=== PATIENT | male | born 1965 | race Caucasian/White ===

== ENCOUNTER 2017-04-24 11:42 | Inpatient (IN) | payer OTHER ==
[~2017-04-24] VITALS: Ht 180.3 cm; Wt 121.1 kg
[2017-04-24] MEDS ORDERED: SODIUM CHLORIDE FLUSH 10ML SYR IVF ONE (12:30)
[2017-04-24] MEDS ORDERED: ONDANSETRON 2MG/ML, 2ML IVPush ONE (12:30)
[2017-04-24] MEDS ORDERED: ONDANSETRON 2MG/ML, 2ML ONE (12:34)
[2017-04-24] MEDS ORDERED: HYDROmorphone 1 MG/ML, 1ML ONE ×5 (12:34→17:42)
[2017-04-24] MEDS: HYDROmorphone 1 MG/ML, 1ML IVPush PRN ×2 (12:38→13:20)
[2017-04-24 12:55] LABS: HEMATOCRIT 45.8 % (39.2-51.8); HEMOGLOBIN 15.5 g/dL (13.7-18.0); WHITE BLOOD COUNT 11.8 x10^3/uL (3.4-10)
[2017-04-24 13:11] LABS: BLOOD UREA NITROGEN 17 mg/dL (7-18)
[2017-04-24] MEDS ORDERED: HYDROmorphone 1 MG/ML, 1ML IV ONE (14:30)
[2017-04-24] MEDS ORDERED: D5%-0.45NACL+KCL 20MEQ 1,000 ML IV ONE (15:16)
[2017-04-24] MEDS ORDERED: HYDROmorphone 1 MG/ML, 1ML IVPush PRN (15:30)
[2017-04-24] MEDS ORDERED: ONDANSETRON 2MG/ML, 2ML IVPush PRN (15:30)
[2017-04-24] MEDS: HYDROmorphone 2 MG/ML, 1ML IVPush PRN (17:46)
[2017-04-24 19:45] VITALS: BP 147/95
[2017-04-24] MEDS: OXYcodone/APAP 10/325MG TABLET PO PRN (20:19)
[2017-04-25] MEDS: OXYcodone/APAP 10/325MG TABLET PO PRN ×7 (00:25→22:28)
[2017-04-25] MEDS: HYDROmorphone 2 MG/ML, 1ML IVPush PRN ×6 (01:01→19:26)
[2017-04-25 04:41] VITALS: BP 112/69
[2017-04-25] MEDS: ENOXAPARIN 40 MG/0.4 ML SQ SCH (07:49)
[2017-04-25 08:35] VITALS: BP 128/68
[2017-04-25] MEDS ORDERED: DIPHENHYDRAMINE 25 MG CAPSULE PO PRN (13:00)
[2017-04-25] MEDS ORDERED: DIPHENHYDRAMINE 50 MG CAPSULE PO PRN (13:00)
[2017-04-25 13:46] VITALS: BP 124/68
[2017-04-25 19:37] VITALS: BP 124/75
[2017-04-26 01:58] VITALS: BP 112/72
[2017-04-26] MEDS: OXYcodone/APAP 10/325MG TABLET PO PRN (02:00)
[2017-04-26 07:10] VITALS: BP 115/74
[2017-04-26] MEDS: ENOXAPARIN 40 MG/0.4 ML SQ SCH (08:40)
[2017-04-26 12:55] VITALS: BP 157/85
[2017-04-26] MEDS ORDERED: BUPIVACAINE/PF 0.5% ONE (13:15)
[2017-04-26] MEDS ORDERED: LIDOCAINE/PF 1%, 30ML ONE (13:15)
[2017-04-26] MEDS ORDERED: ROPIvacaine/PF 0.5%, 30 ML ONE (13:15)
[2017-04-26] MEDS ORDERED: MIDAZOLAM 1 MG/ML, 2ML ONE (13:22)
[2017-04-26] MEDS ORDERED: FENTANYL PF 100 MCG/2ML ONE (13:22)
[2017-04-26] MEDS ORDERED: FENTANYL PF 100 MCG/2ML IV PRN (13:30)
[2017-04-26] MEDS ORDERED: OXYcodone 5 MG/5 ML ORAL.SOL UDC PO PRN ×2 (13:30→16:30)
[2017-04-26] MEDS ORDERED: PROMETHAZINE 25 MG/ML, 1ML IV PRN (13:30)
[2017-04-26] MEDS ORDERED: LABETALOL 5MG/ML, 20ML IV PRN (13:30)
[2017-04-26] MEDS ORDERED: ALBUTEROL SULFATE 2.5 MG/3 ML NPPB PRN (13:30)
[2017-04-26] MEDS ORDERED: EPHEDRINE 50 MG/ML, 1ML IVPush PRN (13:30)
[2017-04-26] MEDS ORDERED: HYDROmorphone 1 MG/ML, 1ML IV PRN (13:30)
[2017-04-26] MEDS ORDERED: ONDANSETRON 2MG/ML, 2ML IVPush PRN (13:30)
[2017-04-26] MEDS ORDERED: ACETAMINOPHEN 325 MG TABLET PO PRN (13:30)
[2017-04-26] MEDS ORDERED: METOPROLOL 1 MG/ML, 5ML IV PRN (13:30)
[2017-04-26] MEDS ORDERED: hydrALAzine 20 MG/ML, 1ML IV PRN (13:30)
[2017-04-26] MEDS ORDERED: MEPERIDINE/PF 25MG/0.5ML IVPush PRN (13:30)
[2017-04-26] MEDS ORDERED: CEFAZOLIN 1,000 MG ONE (13:50)
[2017-04-26] MEDS ORDERED: SUCCINYLCHOLINE 20 MG/ML, 10ML ONE (13:50)
[2017-04-26] MEDS ORDERED: METOCLOPRAMIDE 5 MG/ML, 2ML ONE (13:50)
[2017-04-26] MEDS ORDERED: PROPOFOL 10 MG/ML, 20ML ONE (13:50)
[2017-04-26] MEDS ORDERED: ONDANSETRON 2MG/ML, 2ML ONE (13:50)
[2017-04-26] MEDS ORDERED: MEPERIDINE/PF 25MG/0.5ML ONE (15:02)
[2017-04-26] MEDS ORDERED: LABETALOL 5MG/ML, 20ML ONE (15:02)
[2017-04-26] MEDS ORDERED: OXYcodone 5 MG/5 ML ORAL.SOL UDC ONE (15:45)
[2017-04-26] MEDS ORDERED: ACETAMINOPHEN 650 MG/20.3 ML UDC ONE (15:45)
[2017-04-26] MEDS ORDERED: HYDROmorphone 1 MG/ML, 1ML ONE (15:48)
[2017-04-26] MEDS ORDERED: DIPHENHYDRAMINE 25 MG CAPSULE PO PRN (16:30)
[2017-04-26] MEDS ORDERED: PROMETHAZINE 25 MG/ML, 1ML IM PRN (16:30)
[2017-04-26] MEDS ORDERED: ONDANSETRON 2MG/ML, 2ML IV PRN (16:30)
[2017-04-26 19:04] VITALS: BP 121/76
[2017-04-26] MEDS: HYDROmorphone 1 MG/ML, 1ML IV PRN (19:24)
[2017-04-26] MEDS: SODIUM CHLORIDE FLUSH 10ML SYR IVF SCH (19:24)
[2017-04-26] MEDS: CEFAZOLIN PMX 2GM/50ML 50 ML IVPB SCH (22:20)
[2017-04-26 23:57] VITALS: BP 120/44
[2017-04-27] MEDS: HYDROmorphone 1 MG/ML, 1ML IV PRN
[2017-04-27] MEDS: OXYcodone IR 5MG TABLET PO PRN ×4 (01:33→17:20)
[2017-04-27 04:34] VITALS: BP 123/71
[2017-04-27] MEDS: ENOXAPARIN 30 MG/0.3 ML SQ SCH ×2 (05:49→17:20)
[2017-04-27] MEDS: CEFAZOLIN PMX 2GM/50ML 50 ML IVPB SCH (05:49)
[2017-04-27 08:15] VITALS: BP 123/71
[2017-04-27] MEDS: SODIUM CHLORIDE FLUSH 10ML SYR IVF SCH ×2 (09:00→23:25)
[2017-04-27 13:45] VITALS: BP 134/71
[2017-04-27 18:36] VITALS: BP 159/74
[2017-04-28] MEDS: OXYcodone IR 5MG TABLET PO PRN ×5 (00:04→19:52)
[2017-04-28 01:25] VITALS: BP 143/83
[2017-04-28] MEDS: ENOXAPARIN 30 MG/0.3 ML SQ SCH ×2 (06:25→17:54)
[2017-04-28 07:38] VITALS: BP 135/80
[2017-04-28] MEDS: HYDROmorphone 1 MG/ML, 1ML IV PRN (09:56)
[2017-04-28] MEDS: SODIUM CHLORIDE FLUSH 10ML SYR IVF SCH ×2 (09:56→21:00)
[2017-04-28 13:55] VITALS: BP 106/39
[2017-04-28] MEDS ORDERED: POLYETHYLENE GLYCOL 17 GM PACKET PO PRN (16:00)
[2017-04-28] MEDS ORDERED: BISACODYL 10 MG SUPP PR PRN (16:00)
[2017-04-28 20:00] VITALS: BP 124/76
[2017-04-29] MEDS: OXYcodone IR 5MG TABLET PO PRN ×6 (00:01→21:07)
[2017-04-29 01:53] VITALS: BP 138/72
[2017-04-29] MEDS: ENOXAPARIN 30 MG/0.3 ML SQ SCH ×2 (06:44→21:07)
[2017-04-29 07:46] VITALS: BP 139/82
[2017-04-29] MEDS: DOCUSATE 100 MG CAPSULE PO SCH (08:02)
[2017-04-29] MEDS: SODIUM CHLORIDE FLUSH 10ML SYR IVF SCH ×2 (08:02→21:00)
[2017-04-29 13:28] VITALS: BP 171/94
[2017-04-29 19:40] VITALS: BP 149/92
[2017-04-29] MEDS: HYDROmorphone 1 MG/ML, 1ML IV PRN (23:51)
[2017-04-30 01:58] VITALS: BP 120/89
[2017-04-30] MEDS: OXYcodone IR 5MG TABLET PO PRN ×5 (02:19→20:19)
[2017-04-30 07:53] VITALS: BP 152/101
[2017-04-30] MEDS: HYDROmorphone 1 MG/ML, 1ML IV PRN ×2 (10:28→19:02)
[2017-04-30] MEDS: DOCUSATE 100 MG CAPSULE PO SCH (10:28)
[2017-04-30] MEDS: ENOXAPARIN 30 MG/0.3 ML SQ SCH ×2 (10:29→20:20)
[2017-04-30] MEDS: SODIUM CHLORIDE FLUSH 10ML SYR IVF SCH ×2 (10:31→21:00)
[2017-04-30 10:38] VITALS: BP 135/79
[2017-04-30 13:32] VITALS: BP 142/73
[2017-04-30 20:54] VITALS: BP 154/89
[2017-05-01] MEDS: OXYcodone IR 5MG TABLET PO PRN ×6 (00:17→21:56)
[2017-05-01 04:42] VITALS: BP 148/90
[2017-05-01 07:52] VITALS: BP 133/80
[2017-05-01] MEDS: SODIUM CHLORIDE FLUSH 10ML SYR IVF SCH ×2 (09:00→20:08)
[2017-05-01] MEDS: DOCUSATE 100 MG CAPSULE PO SCH (09:00)
[2017-05-01] MEDS: ENOXAPARIN 30 MG/0.3 ML SQ SCH ×3 (09:00→20:08)
[2017-05-01 13:23] VITALS: BP 150/80
[2017-05-01] MEDS: HYDROmorphone 1 MG/ML, 1ML IV PRN (15:40)
[2017-05-01 19:42] VITALS: BP 152/99
[2017-05-02] MEDS: OXYcodone IR 5MG TABLET PO PRN ×6 (02:00→23:58)
[2017-05-02 02:27] VITALS: BP 123/75
[2017-05-02] MEDS: DOCUSATE 100 MG CAPSULE PO SCH (09:00)
[2017-05-02] MEDS: SODIUM CHLORIDE FLUSH 10ML SYR IVF SCH ×2 (10:35→19:48)
[2017-05-02] MEDS: ENOXAPARIN 30 MG/0.3 ML SQ SCH ×2 (10:36→19:48)
[2017-05-02 15:40] VITALS: BP 147/88
[2017-05-02 16:06] VITALS: BP 147/88
[2017-05-02 20:49] VITALS: BP 170/78
[2017-05-03 04:29] VITALS: BP 126/77
[2017-05-03] MEDS: OXYcodone IR 5MG TABLET PO PRN ×5 (04:35→21:13)
[2017-05-03 07:33] VITALS: BP 126/79
[2017-05-03] MEDS: SODIUM CHLORIDE FLUSH 10ML SYR IVF SCH ×2 (08:38→21:13)
[2017-05-03] MEDS: DOCUSATE 100 MG CAPSULE PO SCH (08:38)
[2017-05-03] MEDS: ENOXAPARIN 30 MG/0.3 ML SQ SCH ×2 (08:38→21:13)
[2017-05-03 13:09] VITALS: BP 124/77
[2017-05-03 20:25] VITALS: BP 148/93
[2017-05-04] MEDS: OXYcodone IR 5MG TABLET PO PRN ×3 (01:10→23:50)
[2017-05-04 01:14] VITALS: BP 151/88
[2017-05-04] MEDS: HYDROmorphone 1 MG/ML, 1ML IV PRN ×2 (05:39)
[2017-05-04] MEDS: DOCUSATE 100 MG CAPSULE PO SCH (07:39)
[2017-05-04] MEDS: ENOXAPARIN 30 MG/0.3 ML SQ SCH ×2 (07:40→19:45)
[2017-05-04 08:15] VITALS: BP 150/82
[2017-05-04] MEDS: SODIUM CHLORIDE FLUSH 10ML SYR IVF SCH ×2 (09:00→19:50)
[2017-05-04] MEDS ORDERED: FENTANYL PF 1000 MCG/20ML ONE (12:27)
[2017-05-04] MEDS ORDERED: MIDAZOLAM 1 MG/ML, 2ML ONE (12:28)
[2017-05-04] MEDS ORDERED: ROPIvacaine/PF 0.5%, 30 ML ONE (12:29)
[2017-05-04] MEDS ORDERED: FENTANYL PF 100 MCG/2ML ONE ×4 (12:29→15:41)
[2017-05-04] MEDS ORDERED: PROPOFOL 10 MG/ML, 20ML ONE ×2 (12:45)
[2017-05-04] MEDS ORDERED: CEFAZOLIN 1,000 MG ONE ×3 (12:45→12:56)
[2017-05-04] MEDS ORDERED: ONDANSETRON 2MG/ML, 2ML ONE (12:46)
[2017-05-04] MEDS ORDERED: KETOROLAC 30 MG/1 ML ONE (12:46)
[2017-05-04] MEDS ORDERED: DEXAMETHASONE 4 MG/ML, 1ML ONE ×2 (13:11)
[2017-05-04] MEDS ORDERED: LABETALOL 5MG/ML, 20ML ONE (13:23)
[2017-05-04] MEDS ORDERED: HYDROmorphone 1 MG/ML, 1ML ONE ×2 (13:41→15:41)
[2017-05-04] MEDS ORDERED: ACETAMINOPHEN 325 MG TABLET PO PRN (15:00)
[2017-05-04] MEDS ORDERED: OXYcodone 5 MG/5 ML ORAL.SOL UDC PO PRN (15:00)
[2017-05-04] MEDS ORDERED: PROMETHAZINE 25 MG/ML, 1ML IV PRN (15:00)
[2017-05-04] MEDS ORDERED: HYDROmorphone 1 MG/ML, 1ML IV PRN (15:00)
[2017-05-04] MEDS ORDERED: FENTANYL PF 100 MCG/2ML IV PRN (15:00)
[2017-05-04] MEDS ORDERED: OXYcodone 5 MG/5 ML ORAL.SOL UDC ONE (15:31)
[2017-05-04] MEDS ORDERED: ACETAMINOPHEN 650 MG/20.3 ML UDC ONE (15:31)
[2017-05-04 21:29] VITALS: BP 141/73
[2017-05-05 00:33] VITALS: BP 122/63
[2017-05-05] MEDS: OXYcodone IR 5MG TABLET PO PRN ×5 (04:06→22:32)
[2017-05-05 08:29] VITALS: BP 141/77
[2017-05-05] MEDS: DOCUSATE 100 MG CAPSULE PO SCH (09:27)
[2017-05-05] MEDS: ENOXAPARIN 30 MG/0.3 ML SQ SCH ×2 (09:27→20:29)
[2017-05-05] MEDS: SODIUM CHLORIDE FLUSH 10ML SYR IVF SCH ×2 (09:28→20:29)
[2017-05-05] MEDS: HYDROmorphone 1 MG/ML, 1ML IV PRN ×6 (10:00→22:32)
[2017-05-05 15:29] VITALS: BP 163/91
[2017-05-05 19:16] VITALS: BP 160/97
[2017-05-06] MEDS: HYDROmorphone 1 MG/ML, 1ML IV PRN ×10 (00:27→22:31)
[2017-05-06] MEDS: OXYcodone IR 5MG TABLET PO PRN ×6 (02:31→22:31)
[2017-05-06 02:36] VITALS: BP 157/95
[2017-05-06 07:08] VITALS: BP 159/92
[2017-05-06] MEDS: SODIUM CHLORIDE FLUSH 10ML SYR IVF SCH ×2 (08:20→20:37)
[2017-05-06] MEDS: DOCUSATE 100 MG CAPSULE PO SCH (08:20)
[2017-05-06] MEDS: ENOXAPARIN 30 MG/0.3 ML SQ SCH ×2 (08:20→20:37)
[2017-05-06 13:25] VITALS: BP 138/80
[2017-05-06 19:28] VITALS: BP 152/80
[2017-05-07] MEDS: HYDROmorphone 1 MG/ML, 1ML IV PRN ×12 (00:43→23:00)
[2017-05-07 02:25] VITALS: BP 142/85
[2017-05-07] MEDS: OXYcodone IR 5MG TABLET PO PRN ×5 (02:45→22:59)
[2017-05-07 05:39] LABS: HEMATOCRIT 39.3 % (39.2-51.8); HEMOGLOBIN 13.4 g/dL (13.7-18.0); WHITE BLOOD COUNT 11.8 x10^3/uL (3.4-10)
[2017-05-07 06:28] LABS: ASPARTATE AMINO TRANSFERASE 25 U/L (15-37); BLOOD UREA NITROGEN 20 mg/dL (7-18)
[2017-05-07] MEDS: ENOXAPARIN 30 MG/0.3 ML SQ SCH (08:45)
[2017-05-07] MEDS: DOCUSATE 100 MG CAPSULE PO SCH (09:00)
[2017-05-07] MEDS: SODIUM CHLORIDE FLUSH 10ML SYR IVF SCH ×2 (09:06→20:55)
[2017-05-07 09:15] VITALS: BP 147/86
[2017-05-07 13:49] VITALS: BP 141/94
[2017-05-07] MEDS ORDERED: BUPIVACAINE/PF 0.5% ONE (16:29)
[2017-05-07] MEDS ORDERED: FENTANYL PF 100 MCG/2ML ONE ×4 (16:42→18:33)
[2017-05-07] MEDS ORDERED: PROPOFOL 10 MG/ML, 20ML ONE (16:44)
[2017-05-07] MEDS ORDERED: ONDANSETRON 2MG/ML, 2ML ONE (16:44)
[2017-05-07] MEDS ORDERED: DEXAMETHASONE 4 MG/ML, 1ML ONE (16:44)
[2017-05-07] MEDS ORDERED: SUCCINYLCHOLINE 20 MG/ML, 10ML ONE (16:44)
[2017-05-07] MEDS ORDERED: CEFAZOLIN 1,000 MG ONE (16:44)
[2017-05-07] MEDS ORDERED: FENTANYL PF 100 MCG/2ML IV PRN (17:30)
[2017-05-07] MEDS ORDERED: ONDANSETRON 2MG/ML, 2ML IVPush PRN (17:30)
[2017-05-07] MEDS ORDERED: ACETAMINOPHEN 325 MG TABLET PO PRN (17:30)
[2017-05-07] MEDS ORDERED: HYDROmorphone 1 MG/ML, 1ML ONE (18:21)
[2017-05-07] MEDS: DIAZEPAM 5 MG TABLET PO PRN (19:48)
[2017-05-07 20:41] VITALS: BP 158/85
[2017-05-08] MEDS: HYDROmorphone 1 MG/ML, 1ML IV PRN ×8 (01:05→22:45)
[2017-05-08 02:54] VITALS: BP 140/83
[2017-05-08] MEDS: OXYcodone IR 5MG TABLET PO PRN ×7 (02:57→23:38)
[2017-05-08] MEDS: DIAZEPAM 5 MG TABLET PO PRN ×3 (02:57→19:34)
[2017-05-08 08:02] VITALS: BP 126/73
[2017-05-08] MEDS: ENOXAPARIN 40 MG/0.4 ML SQ SCH (09:45)
[2017-05-08] MEDS: DOCUSATE 100 MG CAPSULE PO SCH (09:46)
[2017-05-08] MEDS: SODIUM CHLORIDE FLUSH 10ML SYR IVF SCH ×2 (09:46→22:45)
[2017-05-08 13:09] VITALS: BP 137/77
[2017-05-08 20:34] VITALS: BP 141/80
[2017-05-09] MEDS: HYDROmorphone 1 MG/ML, 1ML IV PRN ×5 (03:08→17:43)
[2017-05-09] MEDS ORDERED: FLU VACC QS2017-18 (36MOS+) UP/PF 0.5 ML IM-VACC ONE (03:30)
[2017-05-09 03:31] VITALS: BP 150/85
[2017-05-09] MEDS: OXYcodone IR 5MG TABLET PO PRN ×4 (03:37→17:03)
[2017-05-09] MEDS: DIAZEPAM 5 MG TABLET PO PRN ×2 (03:37→10:09)
[2017-05-09 07:30] VITALS: BP 150/97
[2017-05-09] MEDS: DOCUSATE 100 MG CAPSULE PO SCH (08:10)
[2017-05-09] MEDS: ENOXAPARIN 40 MG/0.4 ML SQ SCH (08:10)
[2017-05-09] MEDS: SODIUM CHLORIDE FLUSH 10ML SYR IVF SCH (08:10)
[2017-05-09 14:07] VITALS: BP 149/93
== END 2017-05-09 17:30 | DRG 505 ==
LOC: ED 12:55 → EDIP 15:16 → 4NOR 18:40
PROVIDERS: ADMIT Orthopaedic Surgery; ATTEND Orthopaedic Surgery
PROC: 0QH Lower Bones, Insertion (ICD-10-PCS; 2017-04-26)
PROC: 0HBRXZZ Excision of Toe Nail, External Approach (ICD-10-PCS; 2017-04-26)
PROC: 0QSP04Z Reposition Left Metatarsal with Internal Fixation Device, Open Approach (ICD-10-PCS; principal; 2017-04-26 14:00)
PROC: 0QSL04Z Reposition Right Tarsal with Internal Fixation Device, Open Approach (ICD-10-PCS; 2017-05-04)
PROC: 0QSN04Z Reposition Right Metatarsal with Internal Fixation Device, Open Approach (ICD-10-PCS; 2017-05-04)
PROC: 0Y6T0Z0 Detachment at Right 3rd Toe, Complete, Open Approach (ICD-10-PCS; 2017-05-04)
PROC: 0QSM04Z Reposition Left Tarsal with Internal Fixation Device, Open Approach (ICD-10-PCS; 2017-05-07)
DX: S92.252A Displaced fracture of navicular [scaphoid] of left foot, initial encounter for closed fracture (principal); L97.519 Non-pressure chronic ulcer of other part of right foot with unspecified severity; S92.001A Unspecified fracture of right calcaneus, initial encounter for closed fracture; L84 Corns and callosities; S92.002A Unspecified fracture of left calcaneus, initial encounter for closed fracture; S92.121A Displaced fracture of body of right talus, initial encounter for closed fracture; S92.122A Displaced fracture of body of left talus, initial encounter for closed fracture; S92.211A Displaced fracture of cuboid bone of right foot, initial encounter for closed fracture; S92.212A Displaced fracture of cuboid bone of left foot, initial encounter for closed fracture; S92.311A Displaced fracture of first metatarsal bone, right foot, initial encounter for closed fracture; S92.321A Displaced fracture of second metatarsal bone, right foot, initial encounter for closed fracture; S92.331A Displaced fracture of third metatarsal bone, right foot, initial encounter for closed fracture; S91.202A Unspecified open wound of left great toe with damage to nail, initial encounter; S93.324A Dislocation of tarsometatarsal joint of right foot, initial encounter; S92.342A Displaced fracture of fourth metatarsal bone, left foot, initial encounter for closed fracture; S92.341A Displaced fracture of fourth metatarsal bone, right foot, initial encounter for closed fracture; S92.351A Displaced fracture of fifth metatarsal bone, right foot, initial encounter for closed fracture; S92.352A Displaced fracture of fifth metatarsal bone, left foot, initial encounter for closed fracture; W11.XXXA Fall on and from ladder, initial encounter; Y93.89 Activity, other specified; Y92.59 Other trade areas as the place of occurrence of the external cause; Y99.8 Other external cause status; Z87.891 Personal history of nicotine dependence; Z89.411 Acquired absence of right great toe
CPT/HCPCS: 36415; 76000; 76001; 80048; 80053; 82040; 82565; 85025; 88305; 88311; 90686; 93005; 96374; 96375; 96376; C1713; J0690; J1100; J1170; J1650; J1885; J2175; J2250; J2405; J2704; J2795; J3010; J3490; J0330; J2765; Q0163